=== PATIENT | female | born 2000 | race Hispanic/Latino ===

== ENCOUNTER 2024-07-07 22:39 | Emergency (ER) | payer OTHER ==
[~2024-07-07] VITALS: Ht 162.6 cm; Wt 65.8 kg
[2024-07-07] MEDS: KETOROLAC TROMETHAMINE 60 MG/2 ML VIAL IM STA (23:49)
[2024-07-07 23:52] VITALS: PULSE 94; RESP 18; TEMP 98; O2SAT 100
[2024-07-08] MEDS ORDERED: ONDANSETRON ODT4 MG PO (01:12)
[2024-07-08] MEDS ORDERED: KETOROLAC TROME10 MG PO (01:12)
[2024-07-08] MEDS: ONDANSETRON HCL 4 MG ORAL DISINTEGRATING TAB PO STA (01:15)
[2024-07-08 01:27] VITALS: BP 118/69; PULSE 70; RESP 17
== END 2024-07-08 01:23 | disposition home or self-care (01) ==
LOC: ER 22:50
DX: S06.0X0A Concussion without loss of consciousness, initial encounter (principal); S01.111A Laceration without foreign body of right eyelid and periocular area, initial encounter; W50.0XXA Accidental hit or strike by another person, initial encounter; Y93.66 Activity, soccer; Y92.322 Soccer field as the place of occurrence of the external cause
CPT/HCPCS: 12011; 70450; 70486; 99283; J1885; Q0162